=== PATIENT | male | born 1990 | race African-American/Black ===

== ENCOUNTER 2018-06-30 03:01 | Emergency (ER) | payer SELFPAY ==
[2018-06-30] MEDS ORDERED: NA CHLORIDE 0.9% 1,000 ML ONE (03:35)
[2018-06-30] MEDS ORDERED: ONDANSETRON 4 MG/2 ML VIAL ONE (03:35)
[2018-06-30] MEDS ORDERED: MAGNE/ALUM HYDROXD 30 ML UCUP ONE (03:35)
[2018-06-30] MEDS ORDERED: LIDOCAINE VISCOUS 2% SOLN 15 ML UDC ONE (03:35)
[2018-06-30 04:01] LABS: Absolute Lymphocytes (CBC) 1.1 K/uL (0.7-4.9); Absolute Monocytes 0.9 K/uL (0.1-1.3); Absolute Neutrophil 4.7 K/uL (1.8-8.0); Basophils % 0.5 % (0-1.3); Eosinophils % 4.8 % (0-4.4); Hematocrit 42.2 % (39.6-49.0); Lymphocytes % 15.5 % (15.3-44.8); MCH 30.9 pg (27.0-35.0); MCV 90.2 fL (80-100); MPV 9.1 fL (7.6-11.3); Monocytes % 12.6 % (3.3-12.3); RBC Red Blood Cell Count 4.68 M/uL (4.33-5.43)
[2018-06-30 04:15] LABS: Albumin 4.3 g/dL (3.4-5.0); Bilirubin Direct 0.4 mg/dL (0-0.2); Bilirubin Total 1.3 mg/dL (0.2-1.0); Protein, Total 7.6 g/dL (6.4-8.2)
--- NOTE | 2018-06-30 04:55 | ER ---
Nurse's Notes [facility] Name: Deny Bingham Age: 27 yrs Sex: Male : 1990 Arrival Date: 06/30/2018 Time: 03:07 Bed 17 Private MD: Diagnosis: Viral gastroenteritis;Hematemesis Presentation: 06/30 03:21 Presenting complaint: Patient states: Diarrhea x 2 days; pain to RLQ of abdomen, lp1 vomited x 1 tonight, states some "blood specs" in vomit; denies any fever, pain with urination. Transition of care: patient was not received from another setting of care. Onset of symptoms was June 28, 2018. Risk Assessment: Do you want to hurt yourself or someone else? Patient reports no desire to harm self or others. Initial Sepsis Screen: Does the patient meet any 2 criteria? No. Patient's initial sepsis screen is negative. Does the patient have a suspected source of infection? No. Patient's initial sepsis screen is negative. Care prior to arrival: None. 03:21 Method Of Arrival: Ambulatory lp1 03:21 Acuity: YAJAIRA 3 lp1 Historical: - Allergies: 03:23 No Known Allergies; lp1 - Home Meds: 03:23 None [Active]; lp1 - PMHx: 03:23 None; lp1 - PSHx: 03:23 None; lp1 - Immunization history:: Adult Immunizations up to date. - Social history:: Smoking status: Patient uses tobacco products, chewing tobacco. - Ebola Screening: : No symptoms or risks identified at this time. - Family history:: not pertinent. - Hospitalizations: : No recent hospitalization is reported. Screenin:25 Abuse screen: Denies threats or abuse. Denies injuries from another. Nutritional lp1 screening: No deficits noted. Tuberculosis screening: No symptoms or risk factors identified. Fall Risk None identified. Assessment: 03:23 General: Appears in no apparent distress. Behavior is calm, cooperative, appropriate lp1 for age. Pain: Complains of pain in right lower quadrant Pain currently is 5 out of 10 on a pain scale. Quality of pain is described as crampy. Neuro: Level of Consciousness is awake, alert, obeys commands. Cardiovascular: Patient's skin is warm and dry. Respiratory: Respiratory effort is even, unlabored. GI: Bowel sounds present X 4 quads. Abdomen is tender to palpation in right lower quadrant Reports diarrhea, vomiting. : Denies burning with urination. EENT: No signs and/or symptoms were reported regarding the EENT system. Derm: No deficits noted. Musculoskeletal: Circulation, motion, and sensation intact. 04:30 Reassessment: Patient appears in no apparent distress at this time. Patient and/or lp1 family updated on plan of care and expected duration. Pain level reassessed. Patient is alert, oriented x 3, equal unlabored respirations, skin warm/dry/pink. Vital Signs: 03:22 BP 137 / 78; Pulse 74; Resp 16; Temp 98.9(O); Pulse Ox 96% on R/A; Weight 71.67 kg; lp1 Height 5 ft. 10 in. (177.80 cm); Pain 5/10; 05:10 BP 128 / 76; Pulse 72; Resp 16; Pulse Ox 99% on R/A; lp1 03:22 Body Mass Index 22.67 (71.67 kg, 177.80 cm) lp1 ED Course: 03:07 Patient arrived in ED. es 03:12 Kathy Kraft, RN is Primary Nurse. lp1 03:14 Darrel Rosales MD is Attending Physician. rn 03:22 Triage completed. lp1 03:23 Arm band placed on left wrist. lp1 03:25 Patient has correct armband on for positive identification. lp1 03:40 Inserted saline lock: 20 gauge in right antecubital area, using aseptic technique. lp1 Blood collected. 05:11 No provider procedures requiring assistance completed. IV discontinued, No lp1 redness/swelling at site. Pressure dressing applied. Administered Medications: 03:45 Drug: Zofran 4 mg Route: IVP; Site: right antecubital; lp1 04:30 Follow up: Response: No adverse reaction lp1 03:46 Drug: NS 0.9% 1000 ml Route: IV; Rate: 1000 ml; Site: right antecubital; lp1 05:12 Follow up: IV Status: IV converted to saline lock; IV Intake: 900ml lp1 03:46 Drug: GI Cocktail without - (Maalox Suspension 30 ml, Lidocaine Liquid 2 % 15 lp1 ml) Route: PO; 04:30 Follow up: Response: No adverse reaction lp1 Intake: 05:12 IV: 900ml; Total: 900ml. lp1 Outcome: 04:54 Discharge ordered by . rn 05:11 Discharged to home ambulatory, with significant other. lp1 05:11 Condition: good 05:11 Discharge instructions given to patient, Instructed on discharge instructions, follow up and referral plans. medication usage, Demonstrated understanding of instructions, follow-up care, medications, Prescriptions given X 1. 05:12 Patient left the ED. lp1 Signatures: Beena Goldstein Roman, MD MD rn Kathy Kraft RN RN lp1
--- NOTE | 2018-06-30 04:55 | EDPHYS ---
Physician Documentation [facility] Name: Deny Bingham Age: 27 yrs Sex: Male : 1990 Arrival Date: 06/30/2018 Time: 03:07 Bed 17 Private MD: ED Physician Darrel Rosales HPI: 06/30 03:43 This 27 yrs old Black Male presents to ER via Ambulatory with complaints of Abdominal rn Pain, Vomiting, blood. 03:43 The patient presents to the emergency department with nausea, vomiting, diarrhea. rn Onset: The symptoms/episode began/occurred 2 day(s) ago. Possible causes: unknown. The symptoms are aggravated by pressure. Severity of symptoms: At their worst the symptoms were moderate in the emergency department the symptoms have improved. The patient has not experienced similar symptoms in the past. Reports nausea/vomiting/diarrhea for 2 days, today was throwing up and noticed small amount of bright red blood in emesis, no blood in stool, no medical problems, girlfriend with viral illness as well. . Historical: - Allergies: 03:23 No Known Allergies; lp1 - Home Meds: 03:23 None [Active]; lp1 - PMHx: 03:23 None; lp1 - PSHx: 03:23 None; lp1 - Immunization history:: Adult Immunizations up to date. - Social history:: Smoking status: Patient uses tobacco products, chewing tobacco. - Ebola Screening: : No symptoms or risks identified at this time. - Family history:: not pertinent. - Hospitalizations: : No recent hospitalization is reported. ROS: 03:43 Constitutional: Negative for fever, chills, and weight loss, Eyes: Negative for injury, rn pain, redness, and discharge, Neck: Negative for injury, pain, and swelling, Cardiovascular: Negative for chest pain, palpitations, and edema, Respiratory: Negative for shortness of breath, cough, wheezing, and pleuritic chest pain, Abdomen/GI: + nausea/vomiting/diarrhea MS/Extremity: Negative for injury and deformity, Skin: Negative for injury, rash, and discoloration, Neuro: Negative for headache, weakness, numbness, tingling, and seizure. Exam: 03:43 Constitutional: This is a well developed, well nourished patient who is awake, alert, rn appears anxious Head/Face: Normocephalic, atraumatic. Eyes: Pupils equal round and reactive to light, extra-ocular motions intact. Lids and lashes normal. Conjunctiva and sclera are non-icteric and not injected. Cornea within normal limits. Periorbital areas with no swelling, redness, or edema. ENT: MMM, no oral bleeding Abdomen/GI: Soft, non-tender. No distension or tympany. No guarding or rebound. No evidence of tenderness throughout. Back: No spinal tenderness. No costovertebral tenderness. Full range of motion. Skin: Warm, dry with normal turgor. Normal color with no rashes, no lesions, and no evidence of cellulitis. MS/ Extremity: Pulses equal, no cyanosis. Neurovascular intact. Full, normal range of motion. Equal circumference. Neuro: Awake and alert, GCS 15, oriented to person, place, time, and situation. Cranial nerves II-XII grossly intact. Motor strength 5/5 in all extremities. Sensory grossly intact. Cerebellar exam normal. Normal gait. Vital Signs: 03:22 BP 137 / 78; Pulse 74; Resp 16; Temp 98.9(O); Pulse Ox 96% on R/A; Weight 71.67 kg; lp1 Height 5 ft. 10 in. (177.80 cm); Pain 5/10; 05:10 BP 128 / 76; Pulse 72; Resp 16; Pulse Ox 99% on R/A; lp1 03:22 Body Mass Index 22.67 (71.67 kg, 177.80 cm) lp1 MDM: 03:14 Patient medically screened. rn 04:52 Differential diagnosis: viral gastroenteritis, gastroenteritis, esophageal tear, rn gastritis. Data reviewed: vital signs, nurses notes, lab test result(s), and as a result, I will discharge patient. Counseling: I had a detailed discussion with the patient and/or guardian regarding: the historical points, exam findings, and any diagnostic results supporting the discharge/admit diagnosis, lab results, the need for outpatient follow up, to return to the emergency department if symptoms worsen or persist or if there are any questions or concerns that arise at home. Response to treatment: the patient's symptoms have resolved after treatment, and as a result, I will discharge patient. Special discussion: I discussed with the patient/guardian in detail that at this point there is no indication for admission to the hospital. It is understood, however, that if the symptoms persist or worsen the patient needs to return immediately for re-evaluation. ED course: Sleeping comfortably, no longer vomiting after zofran, most likely either gastritis or small esophageal tear, will dc home with zofran and pcp f/u. 06/30 03:19 Order name: Basic Metabolic Panel; Complete Time: 04:26 rn 06/30 03:19 Order name: CBC with Diff; Complete Time: 04:26 rn 06/30 03:19 Order name: Hepatic Function; Complete Time: 04: rn 06/30 03:19 Order name: Lipase; Complete Time: 04: rn 06/30 03:19 Order name: IV Saline Lock; Complete Time: 03:47 rn 06/30 03:19 Order name: Labs collected and sent; Complete Time: 03:47 rn Administered Medications: 03:45 Drug: Zofran 4 mg Route: IVP; Site: right antecubital; lp1 04:30 Follow up: Response: No adverse reaction lp1 03:46 Drug: NS 0.9% 1000 ml Route: IV; Rate: 1000 ml; Site: right antecubital; lp1 05:12 Follow up: IV Status: IV converted to saline lock; IV Intake: 900ml lp1 03:46 Drug: GI Cocktail without - (Maalox Suspension 30 ml, Lidocaine Liquid 2 % 15 lp1 ml) Route: PO; 04:30 Follow up: Response: No adverse reaction lp1 Disposition: 06/30/18 04:54 Discharged to Home. Impression: Viral gastroenteritis, Hematemesis. - Condition is Stable. - Discharge Instructions: Hematemesis, Kerri-Sahni Syndrome, Viral Gastroenteritis, Adult. - Prescriptions for Zofran ODT 4 mg Oral tablet,disintegrating - place 1 tablet by TRANSLINGUAL route every 8 hours As needed; 20 tablet. - Medication Reconciliation Form, Thank You Letter, Antibiotic Education, Prescription Opioid Use, Work release form form. - Follow up: Private Physician; When: As needed; Reason: Recheck today's complaints, Re-evaluation by your physician. - Problem is new. - Symptoms have improved. Signatures: Dispatcher [employer] EDMS Darrel Rosales MD MD rn Pena, Laura, RN RN lp1 Corrections: (The following items were deleted from the chart) 05:12 04:54 06/30/2018 04:54 Discharged to Home. Impression: Viral gastroenteritis; lp1 Hematemesis. Condition is Stable. Forms are Medication Reconciliation Form, Thank You Letter, Antibiotic Education, Prescription Opioid Use. Follow up: Private Physician; When: As needed; Reason: Recheck today's complaints, Re-evaluation by your physician. Problem is new. Symptoms have improved. rn
[2018-06-30] MEDS ORDERED: NA CHLORIDE 0.9% 100 ML IV ONE (06:45)
[2018-06-30] MEDS ORDERED: AZITHROMYCIN 500 MG/250 ML BAG ONE (06:45)
[2018-06-30] MEDS ORDERED: NA CHLORIDE 0.9% 500 ML ONE (06:45)
[2018-06-30] MEDS ORDERED: CEFTRIAXONE 1000 MG/VIAL ONE (06:45)
== END 2018-06-30 05:12 | disposition home or self-care (01) ==
LOC: ER 03:01
DX: A08.4 Viral intestinal infection, unspecified (principal); Z72.0 Tobacco use
CPT/HCPCS: 36415; 80048; 80076; 83690; 85025; 96361; 96374; 99284; J0456; J2405; J7030

== ENCOUNTER 2018-12-31 07:35 | Emergency (ER) | payer SELFPAY ==
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
[2018-12-31] MEDS ORDERED: IBUPROFEN 400 MG TAB ONE (08:31)
== END 2018-12-31 08:31 | disposition home or self-care (01) ==
LOC: ER 07:35
DX: S16.1XXA Strain of muscle, fascia and tendon at neck level, initial encounter (principal); V49.50XA Passenger injured in collision with unspecified motor vehicles in traffic accident, initial encounter

== ENCOUNTER 2019-01-22 01:35 | Emergency (ER) | payer SELFPAY ==
--- NOTE | 2019-01-22 03:32 | ER ---
Nurse's Notes [facility] Name: Deny Bingham Age: 28 yrs Sex: Male : 1990 Arrival Date: 01/22/2019 Time: 01:37 Bed 15 Private MD: Diagnosis: Acute tonsillitis Presentation: 01/22 01:45 Presenting complaint: Patient states: he started having a sore throat yesterday and it bb is just getting worse he could not eat tonight from the pain when swallowing, denies fever. Transition of care: patient was not received from another setting of care. Onset of symptoms was January 20, 2019. Risk Assessment: Do you want to hurt yourself or someone else? Patient reports no desire to harm self or others. Initial Sepsis Screen: Does the patient meet any 2 criteria? No. Patient's initial sepsis screen is negative. Does the patient have a suspected source of infection? No. Patient's initial sepsis screen is negative. Care prior to arrival: None. 01:45 Method Of Arrival: Ambulatory bb 01:45 Acuity: YAJAIRA 4 bb Historical: - Allergies: :46 No Known Allergies; bb - Home Meds: :46 None [Active]; bb - PMHx: :46 None; bb - PSHx: 01:46 None; bb - Immunization history:: Adult Immunizations up to date. - Social history:: Smoking status: Patient uses tobacco products, denies chronic smoking, but will smoke occasionally, chewing tobacco, Patient uses alcohol, occasionally. Patient/guardian denies using street drugs. - Ebola Screening: : No symptoms or risks identified at this time. - Family history:: not pertinent. - Hospitalizations: : No recent hospitalization is reported. Screenin:47 Abuse screen: Denies threats or abuse. Denies injuries from another. Nutritional rr5 screening: No deficits noted. Tuberculosis screening: No symptoms or risk factors identified. Fall Risk None identified. Assessment: 01:45 General: Appears in no apparent distress. uncomfortable, Behavior is calm, cooperative, rr5 agitated. Pain: Complains of pain in throat Pain does not radiate. Pain currently is 9 out of 10 on a pain scale. Quality of pain is described as aching, Pain began gradually, Is intermittent. Neuro: Level of Consciousness is awake, alert, obeys commands, Oriented to person, place, time, situation, Appropriate for age. Cardiovascular: Capillary refill < 3 seconds Patient's skin is warm and dry. Respiratory: Airway is patent Respiratory effort is even, unlabored, Respiratory pattern is regular, symmetrical, Breath sounds are clear. GI: Abdomen is flat. : No signs and/or symptoms were reported regarding the genitourinary system. EENT: Throat is reddened has patchy exudate with gag reflex present. Derm: Skin is intact, Skin temperature is warm. Musculoskeletal: Capillary refill < 3 seconds, Range of motion: intact in all extremities. 02:40 Reassessment: Patient appears in no apparent distress at this time. Patient is alert, rr5 oriented x 3, equal unlabored respirations, skin warm/dry/pink. awaiting for laboratory result. 03:30 Reassessment: Patient appears in no apparent distress at this time. review done, for rr5 discharge. 04:05 Reassessment: Patient appears in no apparent distress at this time. Patient is alert, rr5 oriented x 3, equal unlabored respirations, skin warm/dry/pink. discharge instruction given and explained without complaints made. no allergic reaction reported vitally stable. Vital Signs: 01:46 BP 132 / 96; Pulse 77; Resp 16 S; Temp 98.4(O); Pulse Ox 97% on R/A; Weight 74.84 kg bb (M); Height 5 ft. 10 in. (177.80 cm) (R); Pain 8/10; 02:30 BP 118 / 76; Pulse 70; Resp 17; Pulse Ox 98% ; rr5 03:41 BP 122 / 77; Pulse 75; Resp 16; Pulse Ox 99% ; rr5 01:46 Body Mass Index 23.67 (74.84 kg, 177.80 cm) bb ED Course: 01:37 Patient arrived in ED. am2 01:42 Darrel Rosales MD is Attending Physician. rn 01:45 Mitchel Valdez RN is Primary Nurse. rr5 01:46 Triage completed. bb 01:46 Arm band placed on Patient placed in an exam room, on a stretcher, on pulse oximetry. bb 01:47 Patient has correct armband on for positive identification. Bed in low position. Call rr5 light in reach. Pulse ox on. NIBP on. 04:14 No provider procedures requiring assistance completed. Patient did not have IV access rr5 during this emergency room visit. Administered Medications: 03:41 Drug: Augmentin 875 mg Route: PO; rr5 04:15 Follow up: Response: No adverse reaction rr5 Outcome: 03:31 Discharge ordered by . rn 04:14 Discharged to home ambulatory. rr5 04:14 Condition: stable 04:14 Discharge instructions given to patient, Instructed on discharge instructions, follow up and referral plans. medication usage, Demonstrated understanding of instructions, follow-up care, medications, Prescriptions given X 1. 04:14 Patient left the ED. rr5 Signatures: Elba Matthews RN RN Darrel Modi MD MD rn Moreno, Amanda am2 Roque, Raymond, RN RN rr5
--- NOTE | 2019-01-22 03:32 | EDPHYS ---
Physician Documentation [facility] Name: Deny Bingham Age: 28 yrs Sex: Male : 1990 Arrival Date: 01/22/2019 Time: 01:37 Bed 15 Private MD: ED Physician Darrel Rosales HPI: 01/22 02:00 This 28 yrs old Black Male presents to ER via Ambulatory with complaints of Sore Throat.rn 02:00 The patient presents with sore throat. rn 02:04 The patient describes throat pain as raw, scratchy. Onset: The symptoms/episode rn began/occurred 2 day(s) ago. Severity of symptoms: At their worst the symptoms were mild, in the emergency department the symptoms are unchanged. Modifying factors: The symptoms are alleviated by nothing, the symptoms are aggravated by swallowing. The patient has not experienced similar symptoms in the past. The patient has not recently seen a physician. Historical: - Allergies: 01:46 No Known Allergies; bb - Home Meds: 01:46 None [Active]; bb - PMHx: :46 None; bb - PSHx: 01:46 None; bb - Immunization history:: Adult Immunizations up to date. - Social history:: Smoking status: Patient uses tobacco products, denies chronic smoking, but will smoke occasionally, chewing tobacco, Patient uses alcohol, occasionally. Patient/guardian denies using street drugs. - Ebola Screening: : No symptoms or risks identified at this time. - Family history:: not pertinent. - Hospitalizations: : No recent hospitalization is reported. ROS: 02:04 Constitutional: Negative for fever, chills, and weight loss, ENT: + sore throat Neck: rn Negative for injury, pain, and swelling, Respiratory: Negative for shortness of breath, cough, wheezing, and pleuritic chest pain, Neuro: Negative for headache, weakness, numbness, tingling, and seizure. Exam: 02:04 Constitutional: This is a well developed, well nourished patient who is awake, alert, rn and in no acute distress. ENT: + tonsillar hypertrophy and exudate, no stridor, uvula midline, MMM, no sign of peritonsillar abscess. Neck: + bilateral cervical LAD, no meningeal signs. Vital Signs: 01:46 BP 132 / 96; Pulse 77; Resp 16 S; Temp 98.4(O); Pulse Ox 97% on R/A; Weight 74.84 kg bb (M); Height 5 ft. 10 in. (177.80 cm) (R); Pain 8/10; 02:30 BP 118 / 76; Pulse 70; Resp 17; Pulse Ox 98% ; rr5 03:41 BP 122 / 77; Pulse 75; Resp 16; Pulse Ox 99% ; rr5 01:46 Body Mass Index 23.67 (74.84 kg, 177.80 cm) bb MDM: 01:42 Patient medically screened. rn 03:31 Differential diagnosis: group A strep tonsillitis, laryngitis, pharyngitis. Data rn reviewed: vital signs, nurses notes, lab test result(s), and as a result, I will discharge patient. Counseling: I had a detailed discussion with the patient and/or guardian regarding: the historical points, exam findings, and any diagnostic results supporting the discharge/admit diagnosis, lab results, the need for outpatient follow up, to return to the emergency department if symptoms worsen or persist or if there are any questions or concerns that arise at home. Special discussion: I discussed with the patient/guardian in detail that at this point there is no indication for admission to the hospital. It is understood, however, that if the symptoms persist or worsen the patient needs to return immediately for re-evaluation. 01/22 01:48 Order name: Strep; Complete Time: 03:31 rr5 03 03:31 Order name: Throat Culture EDMS Administered Medications: 03:41 Drug: Augmentin 875 mg Route: PO; rr5 04:15 Follow up: Response: No adverse reaction rr5 Disposition: 01/22/19 03:31 Discharged to Home. Impression: Acute tonsillitis. - Condition is Stable. - Discharge Instructions: Tonsillitis. - Prescriptions for Augmentin 875- 125 mg Oral Tablet - take 1 tablet by ORAL route every 12 hours for 10 days; 20 tablet. - Medication Reconciliation Form, Thank You Letter, Antibiotic Education, Prescription Opioid Use, Work release form form. - Follow up: Private Physician; When: As needed; Reason: Recheck today's complaints, Re-evaluation by your physician. - Problem is new. - Symptoms have improved. Signatures: [facility] Elba Matthews RN Darrel Hernandes MD MD rn Roque, Raymond, RN RN rr5 Corrections: (The following items were deleted from the chart) 04:14 03:31 01/22/2019 03:31 Discharged to Home. Impression: Acute tonsillitis. Condition is rr5 Stable. Forms are Medication Reconciliation Form, Thank You Letter, Antibiotic Education, Prescription Opioid Use. Follow up: Private Physician; When: As needed; Reason: Recheck today's complaints, Re-evaluation by your physician. Problem is new. Symptoms have improved. rn
[2019-01-22] MEDS ORDERED: AMOX/K CLAV 875 MG TAB ONE (03:51)
== END 2019-01-22 04:14 | disposition home or self-care (01) ==
LOC: ER 01:35
DX: J03.90 Acute tonsillitis, unspecified (principal); Z72.0 Tobacco use
CPT/HCPCS: 87070; 87081; 99283

== ENCOUNTER 2019-06-09 06:37 | Emergency (ER) | payer SELFPAY ==
--- NOTE | 2019-06-09 07:49 | ER ---
Nurse's Notes [facility] Name: Deny Bingham Age: 28 yrs Sex: Male : 1990 Arrival Date: 06/09/2019 Time: 06:42 Bed 5 Private MD: Diagnosis: Acute pharyngitis Presentation: 06/09 06:55 Presenting complaint: Patient states: he started having a sore throat yesterday bb afternoon which is getting worse the pain increases with swallowing. Transition of care: patient was not received from another setting of care. Onset of symptoms was June 08, 2019. Risk Assessment: Do you want to hurt yourself or someone else? Patient reports no desire to harm self or others. Initial Sepsis Screen: Does the patient meet any 2 criteria? No. Patient's initial sepsis screen is negative. Does the patient have a suspected source of infection? No. Patient's initial sepsis screen is negative. Care prior to arrival: None. 06:55 Method Of Arrival: Ambulatory bb 06:55 Acuity: YAJAIRA 4 bb Triage Assessment: 07:00 General: Appears in no apparent distress. uncomfortable, Behavior is calm, cooperative, hj appropriate for age. Historical: - Allergies: 06:56 No Known Allergies; bb - Home Meds: 06:56 None [Active]; bb - PMHx: 06:56 None; bb - PSHx: 06:56 None; bb - Immunization history:: Adult Immunizations up to date. - Social history:: Smoking status: Patient uses tobacco products, smokes one-half pack cigarettes per day, chewing tobacco. - Ebola Screening: : No symptoms or risks identified at this time. Screenin:59 Abuse screen: Denies threats or abuse. Denies injuries from another. Nutritional hj screening: No deficits noted. Tuberculosis screening: No symptoms or risk factors identified. Fall Risk None identified. Assessment: 06:59 Pain: Complains of pain in throat. Respiratory: Airway is patent Respiratory effort is hj even, unlabored, Respiratory pattern is regular, symmetrical, Breath sounds are clear. EENT: Throat is reddened. 07:00 General: Appears in no apparent distress. uncomfortable, Behavior is calm, cooperative, hj appropriate for age. Neuro: Level of Consciousness is awake, alert, obeys commands, Oriented to person, place, time, situation, Appropriate for age. Cardiovascular: Capillary refill < 3 seconds Patient's skin is warm and dry. GI: No signs and/or symptoms were reported involving the gastrointestinal system. : No signs and/or symptoms were reported regarding the genitourinary system. Derm: No signs and/or symptoms reported regarding the dermatologic system. Musculoskeletal: No signs and/or symptoms reported regarding the musculoskeletal system. Vital Signs: 06:56 BP 125 / 86; Pulse 76; Resp 14 S; Temp 98.1(O); Pulse Ox 98% on R/A; Weight 74.39 kg bb (R); Height 5 ft. 10 in. (177.80 cm) (R); Pain 6/10; 07:52 BP 122 / 82; Pulse 74; Resp 18; Pulse Ox 100% on R/A; hj 06:56 Body Mass Index 23.53 (74.39 kg, 177.80 cm) ED Course: 06:42 Patient arrived in ED. ag3 06:55 [facility] pm1 06:56 Triage completed. bb 06:56 Arm band placed on Patient placed in an exam room, on a stretcher, on pulse oximetry. bb 06:59 Robert Muñoz, OUSMANE is Primary Nurse. hj 07:00 Patient has correct armband on for positive identification. Bed in low position. Call light in reach. Side rails up X 1. 07:19 Strep Sent. hj 07:49 Dileep Webb MD is Attending Physician. pm1 07:53 No provider procedures requiring assistance completed. Patient did not have IV access hj during this emergency room visit. Administered Medications: No medications were administered Outcome: 07:48 Discharge ordered by . pm1 07:53 Discharged to home ambulatory. hj 07:53 Condition: stable 07:53 Discharge instructions given to patient, Instructed on discharge instructions, follow up and referral plans. medication usage, Demonstrated understanding of instructions, follow-up care, medications, Prescriptions given X 1. 07:53 Patient left the ED. hj Signatures: Elba Matthews RN RN bb Joaquin, Henry, RN RN hj Marinas, Patrick, NP [employer] pm1 Nicolasa Vance ag3
--- NOTE | 2019-06-09 07:49 | EDPHYS ---
Physician Documentation [facility] Name: Deny Bingham Age: 28 yrs Sex: Male : 1990 Arrival Date: 06/09/2019 Time: 06:42 Bed 5 Private MD: ED Physician Dileep Webb HPI: 06/09 07:09 This 28 yrs old Black Male presents to ER via Ambulatory with complaints of Sore Throat.pm1 07:09 The patient presents with sore throat. The patient describes throat pain as dry, pm1 scratchy. Onset: The symptoms/episode began/occurred 1.5 day(s) ago. Severity of symptoms: in the emergency department the symptoms are actually worse. Modifying factors: The symptoms are alleviated by fluids, the symptoms are aggravated by swallowing, Patient's oral intake status: good. Associated signs and symptoms: Pertinent positives: cough, post nasal drainage, sinus congestion, Pertinent negatives chest pain, fever, flu-like symptoms, headache, shortness of breath. The patient has not experienced similar symptoms in the past. The patient has not recently seen a physician. Historical: - Allergies: 06:56 No Known Allergies; bb - Home Meds: 06:56 None [Active]; bb - PMHx: 06:56 None; bb - PSHx: 06:56 None; bb - Immunization history:: Adult Immunizations up to date. - Social history:: Smoking status: Patient uses tobacco products, smokes one-half pack cigarettes per day, chewing tobacco. - Ebola Screening: : No symptoms or risks identified at this time. ROS: 07:09 Constitutional: Negative for fever, chills, and weight loss, Eyes: Negative for injury, pm1 pain, redness, and discharge. 07:09 Neck: Negative for injury, pain, and swelling, Cardiovascular: Negative for chest pain, palpitations, and edema, Abdomen/GI: Negative for abdominal pain, nausea, vomiting, diarrhea, and constipation, Back: Negative for injury and pain. 07:09 MS/Extremity: Negative for injury and deformity, Skin: Negative for injury, rash, and discoloration, Neuro: Negative for headache, weakness, numbness, tingling, and seizure. 07:09 ENT: Positive for sinus congestion, sore throat, Negative for ear pain, dental pain, difficulty swallowing, difficulty handling secretions, hoarseness. 07:09 Respiratory: Positive for cough, Negative for shortness of breath, wheezing. Exam: 07:09 Constitutional: This is a well developed, well nourished patient who is awake, alert, pm1 and in no acute distress. Head/Face: Normocephalic, atraumatic. Eyes: Pupils equal round and reactive to light, extra-ocular motions intact. Lids and lashes normal. Conjunctiva and sclera are non-icteric and not injected. Cornea within normal limits. Periorbital areas with no swelling, redness, or edema. 07:09 Neck: Trachea midline, no thyromegaly or masses palpated, and no cervical lymphadenopathy. Supple, full range of motion without nuchal rigidity, or vertebral point tenderness. No Meningismus. Chest/axilla: Normal chest wall appearance and motion. Nontender with no deformity. No lesions are appreciated. Cardiovascular: Regular rate and rhythm with a normal S1 and S2. No gallops, murmurs, or rubs. Normal PMI, no JVD. No pulse deficits. Respiratory: Lungs have equal breath sounds bilaterally, clear to auscultation and percussion. No rales, rhonchi or wheezes noted. No increased work of breathing, no retractions or nasal flaring. Abdomen/GI: Soft, non-tender, with normal bowel sounds. No distension or tympany. No guarding or rebound. No evidence of tenderness throughout. Back: No spinal tenderness. No costovertebral tenderness. Full range of motion. Skin: Warm, dry with normal turgor. Normal color with no rashes, no lesions, and no evidence of cellulitis. MS/ Extremity: Pulses equal, no cyanosis. Neurovascular intact. Full, normal range of motion. 07:09 ENT: External ear(s): are unremarkable, Ear canal(s): are normal, TM's: are normal, Nose: is normal, Mouth: is normal, Posterior pharynx: Airway: no evidence of obstruction, Tonsils: enlarged on the right, with erythema, no exudate, no ulcerations, erythema, that is mild, peritonsillar mass, is not appreciated, pooling of secretions, is not appreciated. 07:09 Neuro: Orientation: is normal, Motor: is normal, moves all fours, Gait: is steady, at a normal pace, without difficulty. Vital Signs: 06:56 BP 125 / 86; Pulse 76; Resp 14 S; Temp 98.1(O); Pulse Ox 98% on R/A; Weight 74.39 kg bb (R); Height 5 ft. 10 in. (177.80 cm) (R); Pain 6/10; 07:52 BP 122 / 82; Pulse 74; Resp 18; Pulse Ox 100% on R/A; hj 06:56 Body Mass Index 23.53 (74.39 kg, 177.80 cm) bb MDM: 07:05 Patient medically screened. pm1 07:09 Data reviewed: vital signs. Data interpreted: Pulse oximetry: on room air is 98 %. pm1 Interpretation: normal. 07:30 Counseling: I had a detailed discussion with the patient and/or guardian regarding: the pm1 historical points, exam findings, and any diagnostic results supporting the discharge/admit diagnosis, the need for outpatient follow up, to return to the emergency department if symptoms worsen or persist or if there are any questions or concerns that arise at home. 06/09 07:09 Order name: Strep; Complete Time: 07:44 pm1 08 07:30 Order name: Throat Culture EDMS Administered Medications: No medications were administered Disposition: 13:17 Co-signature as Attending Physician, Dileep Webb MD I agree with the assessment and kdr plan of care. Disposition: 06/09/19 07:48 Discharged to Home. Impression: Acute pharyngitis. - Condition is Stable. - Discharge Instructions: Pharyngitis. - Prescriptions for Augmentin 875- 125 mg Oral Tablet - take 1 tablet by ORAL route every 12 hours for 10 days; 20 tablet. - Medication Reconciliation Form, Thank You Letter, Antibiotic Education, Prescription Opioid Use form. - Work release form (06/09/19 07:54). hj - Follow up: Emergency Department; When: As needed; Reason: Worsening of condition. Follow up: Private Physician; When: 2 - 3 days; Reason: Recheck today's complaints, Continuance of care, Re-evaluation by your physician. - Problem is new. - Symptoms have improved. Signatures: Dispatcher [employer] EDMS Dileep Webb MD MD kdr Ballard, Brenda, RN RN Robert Cristobal RN RN hj Marinas, Patrick, [employer] pm1 Corrections: (The following items were deleted from the chart) 07:53 07:48 06/09/2019 07:48 Discharged to Home. Impression: Acute pharyngitis. Condition is hj Stable. Discharge Instructions: Pharyngitis. Forms are Medication Reconciliation Form, Thank You Letter, Antibiotic Education, Prescription Opioid Use. Follow up: Emergency Department; When: As needed; Reason: Worsening of condition. Follow up: Private Physician; When: 2 - 3 days; Reason: Recheck today's complaints, Continuance of care, Re-evaluation by your physician. Problem is new. Symptoms have improved. pm1
== END 2019-06-09 07:53 | disposition home or self-care (01) ==
LOC: ER 06:37
DX: J02.9 Acute pharyngitis, unspecified (principal); F17.210 Nicotine dependence, cigarettes, uncomplicated
CPT/HCPCS: 87070; 87081; 99283

== ENCOUNTER 2020-02-01 15:11 | Emergency (ER) | payer SELFPAY ==
[2020-02-01] MEDS ORDERED: TOBRAMYCIN SULF 0.3% OPTH OINT ONE (16:12)
--- NOTE | 2020-02-01 16:18 | EDPHYS ---
Physician Documentation [facility] Name: Deny Bingham Age: 29 yrs Sex: Male : 1990 Arrival Date: 02/01/2020 Time: 15:13 Bed 7 Private MD: ED Physician MarshalDeny HPI: 01/31 16:05 This 29 yrs old Black Male presents to ER via Ambulatory with complaints of Eye Pain, cesilia Redness of Eye. 16:05 The patient is experiencing pain, redness, The patient sustained a splash. Onset: The cesilia symptoms/episode began/occurred just prior to arrival. Duration: the symptoms are continuous. Aggravated by blinking, light, opening eye. Associated signs and symptoms: Pertinent positives:. Severity of symptoms: At their worst the symptoms were mild. The patient has not experienced similar symptoms in the past. Historical: - Allergies: 15:34 No Known Allergies; jl7 - Home Meds: 15:34 None [Active]; jl7 - PMHx: 15:34 None; jl7 - PSHx: 15:34 None; jl7 - Immunization history:: Adult Immunizations unknown. - Social history:: Smoking status: Patient reports use of chewing tobacco. Patient/guardian denies using tobacco, Stopped _ months ago 1. - Family history:: not pertinent. ROS: 16:05 Constitutional: Negative for fever, chills, and weight loss, Eyes: Negative for injury, cesilia pain, redness, and discharge, Neck: Negative for injury, pain, and swelling, Cardiovascular: Negative for chest pain, palpitations, and edema, Respiratory: Negative for shortness of breath, cough, wheezing, and pleuritic chest pain, Abdomen/GI: Negative for abdominal pain, nausea, vomiting, diarrhea, and constipation, Back: Negative for injury and pain, : Negative for injury, bleeding, discharge, and swelling, MS/Extremity: Negative for injury and deformity, Skin: Negative for injury, rash, and discoloration, Neuro: Negative for headache, weakness, numbness, tingling, and seizure, Psych: Negative for depression, anxiety, suicide ideation, homicidal ideation, and hallucinations, Allergy/Immunology: Negative for hives, rash, and allergies, Endocrine: Negative for neck swelling, polydipsia, polyuria, polyphagia, and marked weight changes, Hematologic/Lymphatic: Negative for swollen nodes, abnormal bleeding, and unusual bruising. 16:05 Eyes: Positive for blurry vision, itching, matting, pain, redness, of the outer aspect of conjuctiva of left eye and inner aspect of conjunctiva of left eye. 16:05 ENT: Positive for Exam: 16:05 Constitutional: This is a well developed, well nourished patient who is awake, alert, cesilia and in no acute distress. Head/Face: Normocephalic, atraumatic. ENT: Nares patent. No nasal discharge, no septal abnormalities noted. Tympanic membranes are normal and external auditory canals are clear. Oropharynx with no redness, swelling, or masses, exudates, or evidence of obstruction, uvula midline. Mucous membranes moist. Neck: Trachea midline, no thyromegaly or masses palpated, and no cervical lymphadenopathy. Supple, full range of motion without nuchal rigidity, or vertebral point tenderness. No Meningismus. Chest/axilla: Normal chest wall appearance and motion. Nontender with no deformity. No lesions are appreciated. Cardiovascular: Regular rate and rhythm with a normal S1 and S2. No gallops, murmurs, or rubs. Normal PMI, no JVD. No pulse deficits. Respiratory: Lungs have equal breath sounds bilaterally, clear to auscultation and percussion. No rales, rhonchi or wheezes noted. No increased work of breathing, no retractions or nasal flaring. Abdomen/GI: Soft, non-tender, with normal bowel sounds. No distension or tympany. No guarding or rebound. No evidence of tenderness throughout. Back: No spinal tenderness. No costovertebral tenderness. Full range of motion. Male : Normal genitalia with no discharge or lesions. Skin: Warm, dry with normal turgor. Normal color with no rashes, no lesions, and no evidence of cellulitis. MS/ Extremity: Pulses equal, no cyanosis. Neurovascular intact. Full, normal range of motion. Neuro: Awake and alert, GCS 15, oriented to person, place, time, and situation. Cranial nerves II-XII grossly intact. Motor strength 5/5 in all extremities. Sensory grossly intact. Cerebellar exam normal. Normal gait. Psych: Awake, alert, with orientation to person, place and time. Behavior, mood, and affect are within normal limits. 16:05 Eyes: Conjunctiva: injected, in the left eye, Corneas: are normal, Sclera: Anterior chamber: normal, Lids and lashes: appear normal, drainage, from the left eye, Nystagmus: is not appreciated. Vital Signs: 15:31 BP 129 / 88; Pulse 81; Resp 16 S; Temp 99.3(O); Pulse Ox 97% on R/A; Pain 5/10; jl7 MDM: 15:39 Patient medically screened. [facility] 16:15 Data reviewed: vital signs, nurses notes. [facility] Administered Medications: 16:22 Drug: Tobrex 0.3 % 1 application Route: Ophthalmic; Site: left eye; sv Disposition: 02/01/20 16:17 Discharged to Home. Impression: Conjunctivitis. - Condition is Stable. - Discharge Instructions: Bacterial Conjunctivitis, Bacterial Conjunctivitis, [id number]. - Prescriptions for Tobrex 0.3 % Ophthalmic ointment - apply 1 inch ribbon by OPHTHALMIC route 2-3 times daily; 3.5 gram. Claritin 10 mg Oral Tablet - take 1 tablet by ORAL route once daily As needed; 14 tablet. - Work release form, Medication Reconciliation Form, Thank You Letter, Antibiotic Education, Prescription Opioid Use form. - Follow up: Dennys Juarez MD; When: 1 - 2 days; Reason: Recheck today's complaints, Re-evaluation by your physician. Follow up: Private Physician; When: 2 - 3 days; Reason: Recheck today's complaints, Re-evaluation by your physician. - Problem is new. - Symptoms have improved. Signatures: Lianet Fry RN RN sv Anderson, Corey, MD MD cha Leal, Jahala, RN RN jl7 Corrections: (The following items were deleted from the chart) 16:28 16:17 02/01/2020 16:17 Discharged to Home. Impression: Conjunctivitis. Condition is sv Stable. Forms are Work release form, Medication Reconciliation Form, Thank You Letter, Antibiotic Education, Prescription Opioid Use. Follow up: Dennys Juarez; When: 1 - 2 days; Reason: Recheck today's complaints, Re-evaluation by your physician. Follow up: Private Physician; When: 2 - 3 days; Reason: Recheck today's complaints, Re-evaluation by your physician. Problem is new. Symptoms have improved. [facility]
--- NOTE | 2020-02-01 16:18 | ER ---
Nurse's Notes [facility] Name: Deny Bingham Age: 29 yrs Sex: Male : 1990 Arrival Date: 02/01/2020 Time: 15:13 Bed 7 Private MD: Diagnosis: Conjunctivitis Presentation: 01/31 15:31 Chief complaint: Patient states: woke this morning with redness and yellow drainage to jl7 left eye. Coronavirus screen: Patient denies fever greater than 100.4F, cough, shortness of breath, or difficulty breathing. Proceed with normal triage process. Ebola Screen: No symptoms or risks identified at this time. Mechanism of Injury: No Mechanism of Injury. The patient denies any loss of vision. Initial Sepsis Screen: Does the patient meet any 2 criteria? No. Patient's initial sepsis screen is negative. Does the patient have a suspected source of infection? No. Patient's initial sepsis screen is negative. Risk Assessment: Do you want to hurt yourself or someone else? Patient reports no desire to harm self or others. Onset of symptoms was February 01, 2020. 15:31 Method Of Arrival: Ambulatory [facility] 15:31 Acuity: YAJAIRA 4 jl7 Triage Assessment: 15:34 General: Appears in no apparent distress. uncomfortable, Behavior is calm, cooperative, jl7 appropriate for age. Pain: Complains of pain in left eye Pain currently is 5 out of 10 on a pain scale. EENT: Sclera/Cornea are reddened in left eye. Historical: - Allergies: 15:34 No Known Allergies; jl7 - Home Meds: 15:34 None [Active]; jl7 - PMHx: 15:34 None; jl7 - PSHx: 15:34 None; jl7 - Immunization history:: Adult Immunizations unknown. - Social history:: Smoking status: Patient reports use of chewing tobacco. Patient/guardian denies using tobacco, Stopped _ months ago 1. - Family history:: not pertinent. Screenin:42 Abuse screen: Denies threats or abuse. Denies injuries from another. Nutritional sv screening: No deficits noted. Tuberculosis screening: No symptoms or risk factors identified. Fall Risk None identified. Assessment: 15:42 General: Appears in no apparent distress. comfortable, Behavior is calm, cooperative, sv appropriate for age. Pain: Complains of pain in left eye Pain currently is 5 out of 10 on a pain scale. Neuro: Level of Consciousness is awake, alert, obeys commands, Oriented to person, place, time, situation, Gait is steady. Respiratory: Respiratory effort is even, unlabored, Respiratory pattern is regular, symmetrical. EENT: Eyes with exudate noted from left eye Sclera/Cornea are reddened in left eye. Derm: Skin is pink, warm \T\ dry. 16:28 Reassessment: Patient appears in no apparent distress at this time. No changes from sv previously documented assessment. Patient and/or family updated on plan of care and expected duration. Pain level reassessed. Patient is alert, oriented x 3, equal unlabored respirations, skin warm/dry/pink. Vital Signs: 15:31 BP 129 / 88; Pulse 81; Resp 16 S; Temp 99.3(O); Pulse Ox 97% on R/A; Pain 5/10; jl7 ED Course: 15:13 Patient arrived in ED. ag5 15:17 Deny Araya MD is Attending Physician. cesilia 15:34 Triage completed. jl7 15:34 Arm band placed on right wrist. jl7 15:41 Lianet Fry RN is Primary Nurse. sv 15:42 Patient has correct armband on for positive identification. Bed in low position. Call sv light in reach. Door closed. Head of bed elevated. 16:16 Dennys Juarez MD is Referral Physician. cesilia 16:27 No provider procedures requiring assistance completed. Patient did not have IV access sv during this emergency room visit. Administered Medications: 16:22 Drug: Tobrex 0.3 % 1 application Route: Ophthalmic; Site: left eye; sv Outcome: 16:17 Discharge ordered by . cesilia 16:27 Discharged to home ambulatory. sv 16:27 Condition: stable 16:27 Discharge instructions given to patient, Instructed on discharge instructions, follow up and referral plans. medication usage, Demonstrated understanding of instructions, follow-up care, medications, Prescriptions given X 2. 16:28 Patient left the ED. sv Signatures: Lianet Fry, RN RN Deny Araya MD MD cha Leal, Jahala, RN RN 7 Ayad Garcia ag5
[2020-02-01 16:54] VITALS: BP 129/88; TEMP 99.3; O2SAT 97
== END 2020-02-01 16:28 | disposition home or self-care (01) ==
LOC: ER 15:11
DX: H10.9 Unspecified conjunctivitis (principal); Z72.0 Tobacco use
CPT/HCPCS: 99283